=== PATIENT | female | born 1965 | race Caucasian/White ===

== ENCOUNTER 2016-07-17 22:57 | Emergency (ER) | payer MEDICAID, OTHER ==
[2016-07-17 23:13] VITALS: BP 135/96; PULSE 66; RESP 16; TEMP 98.1; O2SAT 97; BMI 32.5
[2016-07-17] MEDS ORDERED: Oxycodone/Acetaminophen 5/325 mg Tab PO STA (23:16)
--- NOTE | 2016-07-17 23:21 | ED PDOC ---
Arrival/HPI - General Time Seen by Provider: 07/17/16 23:15 Historian: Patient - History of Present Illness Narrative History of Present Illness (Text): 07/17/16 23:16 51yo female present to ED for throbbing right thumb pain since last night. Mother states she took Naprosyn yesterday with some relieve. Patient denies trauma. states pain started suddenly and became increasingly worse. Denies any other complaint. Past Medical History - Provider Review Nursing Documentation Reviewed: Yes - Musculoskeletal/Rheumatological Hx Musculoskeletal Disorders: Yes (pinched nerve r neck) Hx Arthritis: Yes (bilateral knees, right heel) Hx Falls: No - Psychiatric Hx Depression: No Hx Emotional Abuse: No Hx Physical Abuse: No Hx Substance Use: No - Surgical History Hx Cholecystectomy: Yes (1996) Hx Tubal Ligation: Yes (1991) - Suicidal Assessment Feels Threatened In Home Enviroment: No Family/Social History - Physician Review Nursing Documentation Reviewed: Yes Family/Social History: Unknown Family HX Smoking Status: Never Smoked Hx Alcohol Use: No Hx Substance Use: No Hx Substance Use Treatment: No Allergies/Home Meds Allergies/Adverse Reactions: Allergies No Known Allergies Allergy (Verified 07/17/16 23:12) Review of Systems - Physician Review All systems were reviewed & negative as marked: Yes - Review of Systems Constitutional: Normal Eyes: Normal ENT: Normal Respiratory: Normal Cardiovascular: Normal Gastrointestinal: Normal Genitourinary Female: Normal Musculoskeletal: Arthralgias (Right thumb pain) Skin: Normal Neurological: Normal Endocrine: Normal Hemo/Lymphatic: Normal Psychiatric: Normal Physical Exam Vital Signs Reviewed: Yes Vital Signs Temp Pulse Resp BP Pulse Ox 07/17/16 23:12 98.1 F 66 16 135/96 H 97 07/17/16 23:11 98.1 F 66 16 135/96 H 97 Temperature: Afebrile Blood Pressure: Normal Pulse: Regular Respiratory Rate: Normal Appearance: Positive for: Well-Appearing, Non-Toxic, Comfortable Pain Distress: None Mental Status: Positive for: Alert and Oriented X 3 - Systems Exam Head: Present: Atraumatic, Normocephalic Pupils: Present: PERRL Extroacular Muscles: Present: EOMI Conjunctiva: Present: Normal Mouth: Present: Moist Mucous Membranes Neck: Present: Normal Range of Motion Respiratory/Chest: Present: Clear to Auscultation, Good Air Exchange. No: Respiratory Distress, Accessory Muscle Use Cardiovascular: Present: Regular Rate and Rhythm, Normal S1, S2. No: Murmurs Abdomen: Present: Normal Bowel Sounds. No: Tenderness, Distention, Peritoneal Signs Back: Present: Normal Inspection Upper Extremity: Present: NORMAL PULSES, Tenderness (OVer the right thumb base and thumb), Swelling (right thumb), Neurovascularly Intact. No: Cyanosis, Edema , Normal ROM (Limited on flexion secondary to pain), Erythema, Temperature Abnormalties, Deformity Lower Extremity: Present: Normal Inspection. No: Edema Neurological: Present: GCS=15, CN II-XII Intact, Speech Normal Skin: Present: Warm, Dry, Normal Color. No: Rashes Psychiatric: Present: Alert, Oriented x 3, Normal Insight, Normal Concentration Medical Decision Making ED Course and Treatment: 07/17/16 23:36 Right hand xray - Calcifications noted at the base of the thumb Sugar tong velcro brace placed. result was DW the pt. she was DC home and refereed to her PMD/Ortho. Advised TRT ED for any new or worsening symptoms. - RAD Interpretation Radiology Orders: 07/17/16 23:16 HAND RIGHT THUMB [RAD] Stat - Medication Orders Current Medication Orders: Discontinued Medications Oxycodone/Acetaminophen (Percocet 5/325 Mg Tab) 1 tab PO STAT STA Stop: 07/17/16 23:17 Last Admin: 07/17/16 23:23 Dose: 1 tab Disposition/Present on Arrival - Present on Arrival Any Indicators Present on Arrival: No History of DVT/PE: No History of Uncontrolled Diabetes: No Urinary Catheter: No History Surgical Site Infection Following: None - Disposition Have Diagnosis and Disposition been Completed?: Yes Diagnosis: Thumb pain Disposition: HOME/ ROUTINE Disposition Time: 23:40 Patient Plan: Discharge Patient Problems: Current Active Problems Problem Status Onset Thumb pain Acute Condition: STABLE Discharge Instructions (ExitCare): Arthralgia (ED) Additional Instructions: Follow up with your Doctor/Orthopedist Return to ED for any new or worsening symptoms Prescriptions: Naproxen [Naprosyn] 500 mg PO BID #20 tab oxyCODONE/Acetaminophen [Percocet 5/325 mg Tab] 1 tab PO Q6 #6 tab Referrals: Ayesha Olvera MD [Staff Provider] - Follow up with primary
--- NOTE | 2016-07-18 09:26 | RAD ---
PROCEDURE: Right Hand Radiographs. HISTORY: thumb pain COMPARISON: None. FINDINGS: BONES: Normal. No fracture. JOINTS: Normal. No osteoarthritic changes. SOFT TISSUES: There is a 6 mm calcification adjacent to the head of the 1st metacarpal. This most likely represents calcific tendinitis or bursitis OTHER FINDINGS: None. IMPRESSION: There is a 6 mm calcification adjacent to the head of the 1st metacarpal. This most likely represents calcific tendinitis or bursitis
== END 2016-07-17 23:45 | disposition home or self-care (01) ==
LOC: ED 22:57
DX: M79.644 Pain in right finger(s) (principal)